=== PATIENT | male | born 1945 | race Caucasian/White ===

== ENCOUNTER → 2018-03-22 | Outpatient (CLI) | payer OTHER ==
[2018-03-22 07:57] LABS: POTASSIUM 4.3 mmol/L (3.5-5.1)
== END ==
LOC: M.LAB 04:36
PROVIDERS: Anesthesiology
DX: Z01.812 Encounter for preprocedural laboratory examination (principal); E11.9 Type 2 diabetes mellitus without complications; I10 Essential (primary) hypertension; K21.9 Gastro-esophageal reflux disease without esophagitis

== ENCOUNTER → 2019-01-24 | Outpatient (CLI) | payer OTHER ==
--- NOTE | 2019-02-06 08:28 | PF ---
[address] [address] PULMONARY FUNCTION REPORT Name: ALONA TALBERT Room: [facility]#: [id number] Admission: 01/24/19 Attend Phys: Juvencio Vaz MD Discharge: Date of : 41 Report #: [id number] THIS REPORT FOR: //name// CC: Juvencio Vaz MD DATE OF SERVICE: 01/24/2019 ATTENDING PHYSICIAN: Juvencio Vaz MD FINDINGS: The patient with moderate obstructive defect on spirometry. No significant improvement after inhaled bronchodilator. FEV1 is 1.7, FVC is 2.9, ratio is 57%, FEV1 54% of predicted with no improvement after inhaled bronchodilator. Mid flow rates are diminished. Lung volumes were upper limits of normal and diffusion was normal. IMPRESSION: Abnormalities suggest moderate obstructive defect. No improvement after bronchodilator. <ELECTRONICALLY SIGNED> By: Gilmar Grossman MD 02/06/19 0828 1218 [id number] Grossman MD /nt
== END ==
LOC: M.PUL 09:00
DX: G89.29 Other chronic pain (principal); M25.561 Pain in right knee; M25.562 Pain in left knee

== ENCOUNTER → 2019-05-07 | Outpatient (CLI) | payer OTHER | LOC: M.WC 08:00 | DX: E11.621 Type 2 diabetes mellitus with foot ulcer (principal); L97.511 Non-pressure chronic ulcer of other part of right foot limited to breakdown of skin; E78.5 Hyperlipidemia, unspecified; I10 Essential (primary) hypertension; I48.91 Unspecified atrial fibrillation; I25.10 Atherosclerotic heart disease of native coronary artery without angina pectoris; K21.9 Gastro-esophageal reflux disease without esophagitis; F41.9 Anxiety disorder, unspecified; Z79.4 Long term (current) use of insulin; Z87.891 Personal history of nicotine dependence ==

== ENCOUNTER → 2019-05-14 | Outpatient (CLI) | payer OTHER | LOC: M.WC 01:10 | DX: E11.621 Type 2 diabetes mellitus with foot ulcer (principal); L97.511 Non-pressure chronic ulcer of other part of right foot limited to breakdown of skin; E78.5 Hyperlipidemia, unspecified; I10 Essential (primary) hypertension; I48.91 Unspecified atrial fibrillation; I25.10 Atherosclerotic heart disease of native coronary artery without angina pectoris; K21.9 Gastro-esophageal reflux disease without esophagitis; Z87.891 Personal history of nicotine dependence ==

== ENCOUNTER → 2019-05-21 | Outpatient (CLI) | payer OTHER | LOC: M.WC 02:34 | DX: E11.621 Type 2 diabetes mellitus with foot ulcer (principal); L97.511 Non-pressure chronic ulcer of other part of right foot limited to breakdown of skin; L84 Corns and callosities; E78.5 Hyperlipidemia, unspecified; I10 Essential (primary) hypertension; I48.91 Unspecified atrial fibrillation; I25.10 Atherosclerotic heart disease of native coronary artery without angina pectoris; K21.9 Gastro-esophageal reflux disease without esophagitis; Z89.412 Acquired absence of left great toe; Z87.891 Personal history of nicotine dependence ==

== ENCOUNTER → 2020-10-13 | Day surgery (SDC) | payer OTHER ==
[~2020-10-13] MED LIST: ADVAIR 500-501 EACH INH; BENICAR20 MG PO; ELIQUIS5 MG PO; FIBER GUMMIES1 EACH PO; FISH OIL 1,001000 M2 PO; FUROSEMIDE 40 M40 MG PO; GERITOL COMPLE1 EAC2 PO; HYDRALAZINE 2525 MG PO; LANTUS SUBQ; LIPITOR80 MG PO; NEURONTIN100 MG PO; NORVASC10 MG PO; NOVOLOG100 UNIT/1 SUBQ; OMEPRAZOLE40 MG PO; SODIUM BICARBO650 M3 PO; SPIRIVA18 MCG INH; TYLENOL325 MG PO
--- NOTE | ~2020-10-13 | PROC ---
[address] [address] PROCEDURE REPORT Name: NITISHALONA CERVANTES Room: [facility].#: [id number] Admission: 10/13/20 Attend Phys: Glen Fontaine DO Discharge: Date of : 41 Report #: [id number] THIS REPORT FOR: cc: Scooby Morales MD, Meng MD [facility],Medical Records Staff ~ For GI report, please see the Provation report in Perceptive 7 content. By: 1118Medical Records Staff THERON /WANDA
[2020-10-13 09:25] LABS: HEMATOCRIT 38.2 % (42.0-52.0); HEMOGLOBIN 12.7 gm/dL (14.0-18.0); MCH 31.9 pg (26.0-34.0); MCHC 33.3 g/dL (28.0-37.0); MCV 95.7 fL (80.0-100.0); MPV 7.2 fl. (7.2-11.1); RBC 3.99 mil/uL (4.50-6.00); RDW-CV 14.2 % (10.5-14.5); WBC 8.2 thou/uL (4.0-11.0)
[2020-10-13 09:38] LABS: CALCIUM 9.4 mg/dL (8.5-10.1); CREATININE 2.3 mg/dL (0.6-1.3); POTASSIUM 4.5 mmol/L (3.5-5.1)
[2020-10-13 09:43] LABS: ALBUMIN 3.1 g/dL (3.4-5.0); TOTAL BILIRUBIN 0.7 mg/dL (<0.1-1.0); TOTAL PROTEIN 7.5 g/dL (6.4-8.2)
--- NOTE | 2020-10-13 16:45 | EKG ---
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
--- NOTE | 2020-10-15 17:06 | PATH ---
[facility] [address] [place] [address] PATHOLOGY RPT PROCEDURE Name: ABHIJIT TALBERT HELEN Room: [facility] M.R.#: [id number] Admission: 10/13/20 Date of : 41 Discharge: Report #: [id number] Path Case #: [id number] [facility] Accession Number: [id number] . 01 Material submitted: . PART A: colon - TRANSVERSE COLON POLYP. Modifiers: transverse PART B: colon - DESCENDING COLON POLYP. Modifiers: descending . 01 Clinical history: . PERS. HISTORY OF COLON POLYPS . 02 Diagnosis: A. Transverse colon polyp: - Tubular adenoma, negative for high grade dysplasia. . B. Descending colon polyp: - Hyperplastic polyp. (ADDISON/db; 10/15/2020) LBQ 10/15/2020 1259 Local . 02 Electronically signed: . Jose Guadalupe Plata MD, Pathologist NPI- [id number] . 01 Gross description: . A. The specimen is received in formalin, labeled "Abhijit Brown, transverse colon polyp". Received is a segment of pale mendoza tissue measuring 0.3 cm in maximum dimensions. The specimen is submitted entirely in cassette A1. . B. The specimen is received in formalin, labeled "Abhijit Brown, descending colon polyp". Received is a segment of pale mendoza tissue measuring 0.4 cm in maximum dimensions. The specimen is submitted entirely in cassette B1. (CAA; 10/14/2020) QA/QA 10/14/2020 1550 Local . 02 Pathologist provided ICD-10: D12.3, K63.5 . 02 CPT . 648304, [id number] Specimen Comment: A courtesy copy of this report has been sent to [phone] Specimen Comment: [phone] Specimen Comment: Report sent to / DR FATIMA Performed at: [address], [place] [id number] MD Gokul Edmond MD Phone: [phone] [place] [address] PATHOLOGY RPT PROCEDURE Name: ABHIJIT TALBERT Room: [facility]#: [id number] Admission: 10/13/20 Date of : 41 Discharge: Report #: [id number] Path Case #: [id number] Performed at: [facility] [address], [place] [id number] MD Jose Guadalupe Plata MD Phone: [phone]
== END | disposition home or self-care (01) ==
LOC: M.SUR 05:32
PROVIDERS: ATTEND Internal Medicine Gastroenterology
DX: Z12.11 Encounter for screening for malignant neoplasm of colon (principal); Z86.010 Personal history of colon polyps; D12.3 Benign neoplasm of transverse colon; K57.30 Diverticulosis of large intestine without perforation or abscess without bleeding; K64.4 Residual hemorrhoidal skin tags; I12.9 Hypertensive chronic kidney disease with stage 1 through stage 4 chronic kidney disease, or unspecified chronic kidney disease; E11.22 Type 2 diabetes mellitus with diabetic chronic kidney disease; N18.4 Chronic kidney disease, stage 4 (severe); I48.91 Unspecified atrial fibrillation; E78.5 Hyperlipidemia, unspecified; Z98.890 Other specified postprocedural states; Z79.899 Other long term (current) drug therapy; Z79.01 Long term (current) use of anticoagulants